=== PATIENT | female | born 1990 | race Caucasian/White ===

== ENCOUNTER 2025-08-07 15:33 | Emergency (ER) | payer OTHER ==
[~2025-08-07] VITALS: Ht 167.6 cm; Wt 109.0 kg
[~2025-08-07 15:33] MED LIST: NOCURR
[2025-08-07 16:03] VITALS: BP 118/72; PULSE 125; RESP 20; TEMP 97.4; O2SAT 94
== END 2025-08-07 18:15 ==
LOC: EMS 15:33
DX: M54.2 Cervicalgia (principal); M25.512 Pain in left shoulder; M54.50 Low back pain, unspecified; V89.2XXA Person injured in unspecified motor-vehicle accident, traffic, initial encounter; Y93.89 Activity, other specified; Y92.410 Unspecified street and highway as the place of occurrence of the external cause; Y99.8 Other external cause status
CPT/HCPCS: 70450; 72125; 84703; 99284